=== PATIENT | female | born 1935 | race Two or more races ===

== ENCOUNTER 2022-03-20 08:49 | Outpatient (CLI) | payer MEDICARE, BC ==
[2022-03-20] MEDS ORDERED: SILVER SULFADIAZINE CREAM 25 GM TUBE ONE (10:15)
[2022-03-20] MEDS ORDERED: CLOTRIMAZOLE 1% 15 GM TUBE TP ONE (10:19)
== END 2022-03-20 23:59 ==
LOC: WOU 08:49
PROVIDERS: ATTEND Specialist
DX: L89.324 Pressure ulcer of left buttock, stage 4 (principal); L89.314 Pressure ulcer of right buttock, stage 4; B36.9 Superficial mycosis, unspecified; L24.A0 Irritant contact dermatitis due to friction or contact with body fluids, unspecified; R15.9 Full incontinence of feces; M24.552 Contracture, left hip; M24.551 Contracture, right hip; M24.562 Contracture, left knee; M24.561 Contracture, right knee
CPT/HCPCS: 87077; 87075; 87070; 87186 ×3; G0463; A6210

== ENCOUNTER 2022-03-27 08:40 | Outpatient (CLI) | payer MEDICARE, BC ==
[2022-03-27] MEDS ORDERED: SILVER SULFADIAZINE CREAM 25 GM TUBE ONE (08:44)
== END 2022-03-27 23:59 ==
LOC: WOU 08:40
PROVIDERS: ATTEND Specialist
DX: L89.324 Pressure ulcer of left buttock, stage 4 (principal); L89.314 Pressure ulcer of right buttock, stage 4; L24.A0 Irritant contact dermatitis due to friction or contact with body fluids, unspecified
CPT/HCPCS: G0463; A6210

== ENCOUNTER 2022-04-03 08:48 | Outpatient (CLI) | payer MEDICARE, BC ==
[2022-04-03] MEDS ORDERED: LIDOCAINE SOLN 4% 50 ML BOTTLE ONE (09:07)
[2022-04-03] MEDS ORDERED: CLOTRIMAZOLE 1% 15 GM TUBE TP ONE ×2 (10:16→10:38)
[2022-04-03] MEDS ORDERED: DAKINS HALF STRENGTH (0.25%) 480 ML BOTTLE ONE (10:17)
[2022-04-03 11:05] LABS: BASOPHILS # (AUTO) 0.1 K/uL (0.0-0.2); BASOPHILS % (AUTO) 0.7 % (0.0-2.0); HEMATOCRIT 38 % (33-45); HEMOGLOBIN 12.5 g/dL (11.5-14.8); LYMPHOCYTES # (AUTO) 0.9 K/uL (0.8-4.8); MEAN CORPUSCULAR HGB CONC 33 g/dl (31.0-36.0); MEAN CORPUSCULAR VOLUME 80 fL (82-100); MONOCYTES # (AUTO) 3.6 K/uL (0.1-1.30); MONOCYTES % (AUTO) 37.1 % (2.0-12.0); NEUTROPHILS % (AUTO) 52.2 % (43.0-81.0); PLATELET COUNT (AUTO) 375 K/uL (150-450); RED BLOOD CELL COUNT(AUTO) 4.77 MIL/uL (4.0-5.2); WHITE BLOOD COUNT (AUTO) 9.6 K/uL (4.3-11.0)
[2022-04-03 11:30] LABS: ALBUMIN 3.4 g/dL (3.4-5.0)
[2022-04-03 12:36] LABS: PREALBUMIN 18.1 MG/DL (18.0-35.7)
[2022-04-03 16:22] LABS: BAND % (MANUAL) 2 % (0.0-5.0); BASOPHILS % (MANUAL) 0 % (0.0-2.0); EOSINOPHILS % (MANUAL) 0 % (0-4); LYMPHOCYTES % (MANUAL) 6 % (16-48); MONOCYTES % (MANUAL) 34 % (0-11.0); NEUTROPHILS % (MANUAL) 58 (42-76)
== END 2022-04-03 23:59 | disposition home or self-care (01) ==
LOC: WOU 08:48
PROVIDERS: ATTEND Specialist
DX: L89.324 Pressure ulcer of left buttock, stage 4 (principal); L89.314 Pressure ulcer of right buttock, stage 4; L24.A0 Irritant contact dermatitis due to friction or contact with body fluids, unspecified; B36.9 Superficial mycosis, unspecified; R15.9 Full incontinence of feces; M24.552 Contracture, left hip; M24.551 Contracture, right hip; M24.562 Contracture, left knee; M24.561 Contracture, right knee
CPT/HCPCS: 82040; 85025; 36415; 84134; 85007; G0463; A6210; A6209

== ENCOUNTER 2022-04-10 08:39 | Outpatient (CLI) | payer MEDICARE, BC ==
[2022-04-10] MEDS ORDERED: CLOTRIMAZOLE 1% 15 GM TUBE TP ONE (08:42)
[2022-04-10] MEDS ORDERED: DAKINS HALF STRENGTH (0.25%) 480 ML BOTTLE ONE (08:43)
[2022-04-10] MEDS ORDERED: LIDOCAINE SOLN 4% 50 ML BOTTLE ONE (08:48)
== END 2022-04-10 23:59 | disposition home or self-care (01) ==
LOC: WOU 08:39
PROVIDERS: ATTEND Specialist
DX: L89.324 Pressure ulcer of left buttock, stage 4 (principal); L89.314 Pressure ulcer of right buttock, stage 4
CPT/HCPCS: G0463; A6210

== ENCOUNTER 2022-04-17 08:39 | Outpatient (CLI) | payer MEDICARE, BC ==
[~2022-04-17 08:39] MED LIST: CLOTRIMAZOLE 1% 15 GM TUBE TP ONE
[2022-04-17] MEDS ORDERED: DAKINS HALF STRENGTH (0.25%) 480 ML BOTTLE ONE (08:40)
[2022-04-17] MEDS ORDERED: LIDOCAINE SOLN 4% 50 ML BOTTLE ONE (09:03)
== END 2022-04-17 23:59 ==
LOC: WOU 08:39
PROVIDERS: ATTEND Specialist
DX: L89.324 Pressure ulcer of left buttock, stage 4 (principal); L89.314 Pressure ulcer of right buttock, stage 4; B36.9 Superficial mycosis, unspecified; L24.A0 Irritant contact dermatitis due to friction or contact with body fluids, unspecified; R15.9 Full incontinence of feces; M24.552 Contracture, left hip; M24.551 Contracture, right hip; M24.562 Contracture, left knee; M24.561 Contracture, right knee
CPT/HCPCS: 11043; A6210

== ENCOUNTER 2022-04-24 08:37 | Outpatient (CLI) | payer MEDICARE, BC ==
[2022-04-24 11:24] LABS: BASOPHILS % (AUTO) 0.1 % (0.0-2.0); EOSINOPHILS % (AUTO) 0.5 % (0.0-6.0); HEMATOCRIT 37 % (33-45); HEMOGLOBIN 11.8 g/dL (11.5-14.8); LYMPHOCYTES # (AUTO) 0.7 K/uL (0.8-4.8); LYMPHOCYTES % (AUTO) 4.3 % (20.0-44.0); MEAN CORPUSCULAR HGB CONC 32 g/dl (31.0-36.0); MEAN CORPUSCULAR VOLUME 80 fL (82-100); MONOCYTES # (AUTO) 4.8 K/uL (0.1-1.30); MONOCYTES % (AUTO) 27.7 % (2.0-12.0); NEUTROPHILS # (AUTO) 11.6 K/uL (1.8-8.9); NEUTROPHILS % (AUTO) 67.4 % (43.0-81.0); PLATELET COUNT (AUTO) 396 K/uL (150-450); RED BLOOD CELL COUNT(AUTO) 4.63 MIL/uL (4.0-5.2); WHITE BLOOD COUNT (AUTO) 17.2 K/uL (4.3-11.0)
[2022-04-24 22:21] LABS: LYMPHOCYTES % (MANUAL) 8 % (16-48); MONOCYTES % (MANUAL) 11 % (0-11.0); NEUTROPHILS % (MANUAL) 81 (42-76)
== END 2022-04-24 23:59 ==
LOC: WOU 08:37
PROVIDERS: ATTEND Specialist
DX: L89.324 Pressure ulcer of left buttock, stage 4 (principal); L89.313 Pressure ulcer of right buttock, stage 3; R05.9 Cough, unspecified
CPT/HCPCS: 71046; 97605; 85025; 36415; A6209

== ENCOUNTER 2022-05-01 08:27 | Outpatient (CLI) | payer MEDICARE, BC ==
[2022-05-01] MEDS ORDERED: Z GUARD REMEDY 4 OZ OINT TP ONE (09:07)
== END 2022-05-01 23:59 ==
LOC: WOU 08:27
PROVIDERS: ATTEND Specialist
DX: L89.324 Pressure ulcer of left buttock, stage 4 (principal); L89.313 Pressure ulcer of right buttock, stage 3; L89.151 Pressure ulcer of sacral region, stage 1
CPT/HCPCS: 97605-TC

== ENCOUNTER 2022-05-08 09:17 | Outpatient (CLI) | payer MEDICARE, BC | END 2022-05-08 23:59 | disposition home or self-care (01) | LOC: WOU 09:17 | PROVIDERS: ATTEND Specialist | DX: L89.324 Pressure ulcer of left buttock, stage 4 (principal); L89.313 Pressure ulcer of right buttock, stage 3; L89.151 Pressure ulcer of sacral region, stage 1 | CPT/HCPCS: 11043; 97605-TC ==

== ENCOUNTER 2022-05-29 09:21 | Outpatient (CLI) | payer MEDICARE, BC ==
[2022-05-29] MEDS ORDERED: Z GUARD REMEDY 4 OZ OINT TP ONE (09:36)
== END 2022-05-29 23:59 | disposition home or self-care (01) ==
LOC: WOU 09:21
PROVIDERS: ATTEND Specialist
DX: L89.324 Pressure ulcer of left buttock, stage 4 (principal); L89.313 Pressure ulcer of right buttock, stage 3; L89.151 Pressure ulcer of sacral region, stage 1
CPT/HCPCS: 97605-TC

== ENCOUNTER 2022-06-12 08:52 | Outpatient (CLI) | payer MEDICARE, BC ==
[2022-06-12] MEDS ORDERED: Z GUARD REMEDY 4 OZ OINT TP ONE (09:37)
== END 2022-06-12 23:59 | disposition home or self-care (01) ==
LOC: WOU 08:52
PROVIDERS: ATTEND Specialist
DX: L89.324 Pressure ulcer of left buttock, stage 4 (principal); L89.313 Pressure ulcer of right buttock, stage 3; L89.151 Pressure ulcer of sacral region, stage 1
CPT/HCPCS: 97605-TC